=== PATIENT | male | born 1930 | race Caucasian/White ===

== ENCOUNTER 2017-11-06 10:02 | Outpatient (CLI) | payer MEDICARE, BC ==
--- NOTE | 2017-11-06 12:18 | HP ---
DATE OF SERVICE: 11/06/2017. HISTORY OF PRESENT ILLNESS: Mr. Mateus Low is a very pleasant 87-year-old gentleman accompanied by his and son who presents to the [facility] for evaluation of an ulceration of the right medial lower leg. The patient's son states that Mr. Low has had edema and weeping of his right lower leg for over 1 year, for which he has received dressing changes with the assistance of Home Health. The patient apparently noted the presence of an ulceration of the right medial lower leg approximately 8 days ago. At this time, the patient was seen by his primary care physician and placed on a course of p.o. antibiotics. In addition, the patient was referred to the [facility]ound Center for further evaluation and treatment. The patient was referred to the Wound Center by Dr. Sherita Flores. PAST MEDICAL HISTORY: 1. Diabetes mellitus. 2. Hypertension. 3. Coronary artery disease. 4. History of transient ischemic attack. 5. Atrial fibrillation. PAST SURGICAL HISTORY: 1. Surgery for carpal tunnel. 2. Tonsillectomy. 3. Knee replacement. 4. Pacemaker insertion and subsequent battery replacement. 5. Coronary artery bypass grafting and valvular surgery. MEDICATIONS: 1. Clindamycin. 2. Cyanocobalamin. 3. Lasix. 4. Metformin. 5. Metoprolol. 6. Oxybutynin. 7. Potassium chloride. 8. Pravastatin. 9. Warfarin. ALLERGIES: CODEINE. SOCIAL HISTORY: Significant for tobacco use of up to 3 packs of cigarettes per day for 8-10 years. The patient states that he stopped smoking 63 years ago. The patient denies any history of ETOH use. FAMILY HISTORY: Significant for coronary artery disease. The patient states that his father was diagnosed with coronary artery disease. Family history is also significant for diabetes mellitus. The patient states that his mother was diagnosed with diabetes mellitus. PHYSICAL EXAMINATION: VITAL SIGNS: Temperature 97.5, pulse 69, respirations 18, blood pressure 125/ 56. Accu-Chek 149. GENERAL: An 87-year-old gentleman sitting on table in examination room in no acute distress. HEENT: Normocephalic, atraumatic. NECK: No nuchal rigidity. CHEST: Clear to auscultation. CARDIOVASCULAR: Regular rate and rhythm. ABDOMEN: Soft. EXTREMITIES: An ulceration of the right medial lower leg is present which measures approximately 2.0 x 3.5 cm. No purulent drainage is associated with the wound. No erythema of the skin surrounding the wound is present. No maceration of the skin of the periwound is noted. A dorsalis pedis pulse is palpable on the right and on the left. No significant edema of the right foot or lower leg is present on exam today. ASSESSMENT AND PLAN: 1. Varicose veins with ulcer and inflammation. Silverlon, Webril, and the 3M Coban 2-layer compression system will be applied to the ulceration today. Orders will be transmitted to Home Health for dressing changes of Silverlon, Webril, and the 3M Coban 2-layer compression system two times per week after cleansing and irrigation. Alternatively Home Health may continue application of an Unna boot 2 times per week. I have explained to the patient and his son, should the ulceration fail to heal with the preceding dressing changes over the next 4 weeks, consideration will need to be given to treatment with a bioengineered skin substitute, specifically Apligraf. The patient understands and is in agreement with the preceding treatment plan. The patient is to undergo bilateral venous ultrasound as per Dr. Flores for workup for venous ablation. The patient has been reminded to continue p.o. antibiotics as previously prescribed by Dr. Flores. I will see Mr. Low again in 4 weeks if his wound is still present at this time. The patient and his son understand and are in agreement with the preceding treatment plan. 2. Diabetes mellitus. The patient's Accu-Chek in clinic today is 149. The patient has been told that for optimal wound healing, his blood glucoses should remain below 150. 3. Hypertension. 4. Coronary artery disease. 5. History of transient ischemic attack. 6. Atrial fibrillation. [facility]
== END 2017-11-06 10:03 | disposition home or self-care (01) ==
LOC: WCC 10:02
PROVIDERS: ATTEND Family Medicine
DX: I83.218 Varicose veins of right lower extremity with both ulcer of other part of lower extremity and inflammation (principal); E11.622 Type 2 diabetes mellitus with other skin ulcer; L97.919 Non-pressure chronic ulcer of unspecified part of right lower leg with unspecified severity; I10 Essential (primary) hypertension; I25.10 Atherosclerotic heart disease of native coronary artery without angina pectoris; I48.91 Unspecified atrial fibrillation; Z86.73 Personal history of transient ischemic attack (TIA), and cerebral infarction without residual deficits
CPT/HCPCS: 29581; 36416; 99203; G0463